=== PATIENT | male | born 1945 | race American Indian/Alaskan Native ===

== ENCOUNTER 2018-05-11 05:42 | Outpatient (CLI) | payer MEDICARE | END 2018-05-11 05:43 | disposition home or self-care (01) | LOC: PET-BROA 05:42 | DX: C64.2 Malignant neoplasm of left kidney, except renal pelvis (principal) ==

== ENCOUNTER 2018-05-26 08:21 | Outpatient (CLI) | payer MEDICARE | END 2018-05-26 08:22 | disposition home or self-care (01) | LOC: RAD 08:21 ==